=== PATIENT | male | born 1975 | race Caucasian/White ===

== ENCOUNTER 2017-01-20 20:18 | Emergency (ER) | payer MEDICAID ==
[~2017-01-20] VITALS: Ht 175.3 cm; Wt 105.0 kg
[~2017-01-20 20:18] MED LIST: HYDR-3534 PO; IBUP600 PO; TAMS0.4C67 PO; Z.0.NO CURRENT MEDS
[2017-01-20 20:19] VITALS: BP 144/87; PULSE 89; RESP 15; TEMP 98.2; O2SAT 96
--- NOTE | 2017-01-20 20:56 | PD ---
HPI Chief Complaint: Injury Time Seen by Provider: 20:50 Travel History International Travel<30 days: No Contact w/Intl Traveler<30days: No Traveled to known affect area: No History of Present Illness HPI Patient comes in complaining of pain over the PIP joint of the left index finger that occurred yesterday while working on a car. Patient states he was taking a part off the carpet that was attached to a spring and it came around smacked him in the finger causing a small wound and pain. Patient reports last tetanus shot was more than 5 years ago. Patient washed it thoroughly and placed ice yesterday. Patient got concerned when he was continuing to have pain today and some soft tissue swelling. Pain is throbbing like in nature when he holds his hand down and resolves with holding his hand up. Patient has decreased range of motion at that joint secondary to pain. Denies any numbness or tingling. PFSH Past Medical History Medical History: Denies Significant Hx Social History Alcohol Use: Yes (VERY OCCASIONAL) Tobacco Use: No Substance Use: No Allergies-Medications (Allergen,Severity, Reaction): Coded Allergies: No Known Allergies (Verified , 01/20/17) Reported Meds & Prescriptions Reported Meds & Active Scripts Active No Active Prescriptions or Reported Medications Review of Systems Except as stated in HPI: all other systems reviewed are Neg Physical Exam Narrative GENERAL: Well-developed, well nourished, in no acute distress, and non-ill appearing. SKIN: Focused skin assessment warm and dry. Small less than centimeter blood blister noted on the palmar surface of the left index finger PIP joints and a small superficial abrasion noted over the dorsal aspect of same finger in the area. Capillary refills less than 2 seconds. Neurovascularly intact distally. HEAD: Atraumatic. Normocephalic. EYES: Pupils equal and round. EOMI. No scleral icterus. No injection or drainage. ENT: No nasal bleeding or discharge. Mucous membranes pink and moist. NECK: Trachea midline. Supple. No nuclear rigidity. CARDIOVASCULAR: Radial pulses 2+, nontender, and equal bilaterally. Capillary refill less than 2 seconds. RESPIRATORY: No accessory muscle use. No respiratory distress. MUSCULOSKELETAL: No obvious deformities. No clubbing. No cyanosis. No edema. Decreased range of motion left index finger at the PIP joint secondary to pain. Wrist: FROM and equal BL with passive flexion, extension, and pronation/ supination. Capillary refill less than 2 seconds distal to injury and equal BL. FROM distal to injury and equal BL. Strength distal to injury equal BL. NV intact distal to injury. Flexion and extension of thumb equal BL. Equal strength and movement with abduction/adductions of BL fingers. No tenderness to the anatomical snuffbox. NEUROLOGICAL: Awake and alert. No obvious cranial nerve deficits. Motor grossly within normal limits. Normal speech. PSYCHIATRIC: Appropriate mood and affect; insight and judgment normal. Data Data Last Documented VS Vital Signs Date Time Temp Pulse Resp B/P Pulse Ox O2 Delivery O2 Flow Rate FiO2 01/20/17 20:19 98.2 89 15 144/87 96 Room Air Orders Tetanus/Diphtheria Tox Adult (Tetanus/Di (01/20/17 21:00) Finger ([id number]) (01/20/17 ) Wound Care (01/20/17 22:11) Splint Or Brace Apply/Monitor (01/20/17 22:11) MDM Medical Decision Making Medical Screen Exam Complete: Yes Emergency Medical Condition: Yes Interpretation(s) X-rays of the finger read by the radiologist shows: No fracture. Questionable tiny calcific radiopaque densities overlying the second finger as above. Differential Diagnosis Fracture, sprain, contusion, laceration, open fracture, other Narrative Course The patient appears to have suffered a contusion of the finger. There is no clinical evidence to suspect bony injury by exam. Radiographic examination revealed no fracture seen at this time. The patient has full range of motion on passive motions. There is no significant edema. There is no proximal or distal joint effusion. The distal extremity appears neurovascularly intact, without evidence of neurovascular injury nor compartment syndrome. Tendon exam also was intact. The patient was discharged and given warnings for vascular compromise. The patient is to follow up with their regular physician or hand surgeon. The patient agrees with plan. The patient suffered abrasion. The abrasions are very superficial and non- repairable. There was no evidence to suggest foreign bodies. Visual and tactile exams were unremarkable. There was no evidence of neurovascular injury as well. The patients wound were cleaned and dressed. The patient was given signs and symptom warnings for infection, such as increasing pain, redness, swelling, associated heat, pus or fever. The patient was given instructions for timely follow up. The patient agreed with plan of care. Patient in no obvious distress upon re-evaluation. All pertinent Radiology result(s) discussed with patient/family including questionable findings. Any questions/concerns in reference to patient diagnosis/condition discussed and clarified prior to patient's discharge. Reinforced sheer importance of close follow up with patient's primary physician or primary care clinic and/or hand surgeon. Instructed patient to return to ED immediately, if symptoms return/ worsen. Pt showed understanding of above instructions. Further instructions and recommendations were detailed in discharge paperwork. Pt ambulated without difficulty out of ED at discharge. Diagnosis Primary Impression: Finger contusion Qualified Code: S60.022A - Contusion of left index finger without damage to nail, initial encounter Additional Impression: Finger abrasion, non-infected Referrals: Jerri Baumann MD Patient Instructions: Abrasion (ED), Contusion in Adults (ED), General Instructions Additional Instructions: Follow-up with your primary care physician and/or hand surgeon in 3-5 days for reevaluation. Use [id number] Tylenol and/or ibuprofen as needed for pain. Follow instructions on the packaging. Apply ice affected area 20 minutes per hour as needed for pain. Elevate affected finger to decrease pain and swelling. Keep wound dry and clean as possible using soap and water. Use Neosporin to promote healing. Do not soak or submerge wound. Return to the emergency department if symptoms get worse. Scripts No Active Prescriptions or Reported Meds Disposition: 01 DISCHARGE HOME Condition: Stable Jarret Rowe Jan 20, 2017 20:56
[2017-01-20] MEDS ORDERED: TETANUS/DIPHTHERIA TOXOID ADULT 0.5 ML VIAL IM ONE (21:00)
--- NOTE | 2017-01-20 22:01 | RADRPT ---
EXAM DATE/TIME: 01/20/2017 21:28 [facility] COMPARISON: No previous studies available for comparison. INDICATIONS : Left hand second digit laceration to posterior PIP. MEDICAL HISTORY : None. SURGICAL HISTORY : None. ENCOUNTER: Initial ACUITY: 2 days PAIN SCORE: 5/10 LOCATION: Left hand, second digit. FINDINGS: No acute fracture. On the lateral view there are several tiny radiopaque densities overlying the dist al portion of the proximal phalanx of the second finger. CONCLUSION: 1. No fracture. Questionable tiny calcific radiopaque densities overlying the second finger as above. Elias Torres MD on January 20, 2017 at 21:57 Board Certified Radiologist. This report was verified electronically.
== END 2017-01-20 23:13 | disposition home or self-care (01) ==
LOC: NEPK 20:18
DX: S60.022A Contusion of left index finger without damage to nail, initial encounter (principal); Z23 Encounter for immunization; W20.8XXA Other cause of strike by thrown, projected or falling object, initial encounter; Y93.89 Activity, other specified; Y92.9 Unspecified place or not applicable; Y99.9 Unspecified external cause status
CPT/HCPCS: 29130; 73140; 90471; 90714